=== PATIENT | female | born 1980 | race Caucasian/White ===

== ENCOUNTER 2016-08-11 12:34 | Emergency (ER) | payer MEDICAID, OTHER ==
[2016-08-11 12:47] VITALS: BP 134/86; RESP 22; TEMP 98.6; O2SAT 95
[2016-08-11 13:20] VITALS: PULSE 62
--- NOTE | 2016-08-11 13:32 | UCPHY ---
H & P Patient Type: New Chief Complaint Nursing Narrative: anxiety/depression for past few months. having a hard time functoning Time Seen by Provider: 08/11/16 13:06 HPI/ROS: CHIEF COMPLAINT: Anxiety, depression HISTORY OF PRESENT ILLNESS: The patient is a 36-year-old female who comes to the emergency department complaining of anxiety and depression. She states that it has been worsening over the last 4 or 5 months. She feels that she is not able to care for herself. She denies suicidality or homicidality. She denies any recent drug or alcohol abuse. She does not take any medications. She has been referred to [facility] but cannot get an appointment for several weeks. She denies having any medical complaints. REVIEW OF SYSTEMS: Constitutional: denies: chills, fever, recent illness, recent injury EENTM: denies: blurred vision, double vision, nose congestion Respiratory: denies: cough, shortness of breath Cardiac: denies: chest pain, irregular heart rate, lightheadedness, palpitations Gastrointestinal/Abdominal: denies: abdominal pain, diarrhea, nausea, vomiting, blood streaked stools Genitourinary: denies: dysuria, frequency, hematuria, pain Musculoskeletal: denies: joint pain, muscle pain Skin: denies: lesions, rash, jaundice, bruising Neurological: denies: headache, numbness, paresthesia, tingling, dizziness, weakness Hematologic/Lymphatic: denies: blood clots, easy bleeding, easy bruising Immunologic/allergic: denies: HIV/AIDS, transplant EXAM: GENERAL: Well-appearing, well-nourished and in no acute distress. HEAD: Atraumatic, normocephalic. EYES: Pupils equal round and reactive to light, extraocular movements intact, sclera anicteric, conjunctiva are normal. ENT: TMs normal, nares patent, oropharynx clear without exudates. Moist mucous membranes. NECK: Normal range of motion, supple without lymphadenopathy or JVD. LUNGS: Breath sounds clear to auscultation bilaterally and equal. No wheezes rales or rhonchi. HEART: Regular rate and rhythm without murmurs, rubs or gallops. ABDOMEN: Soft, nontender, normoactive bowel sounds. No guarding, no rebound. No masses appreciated. BACK: No CVA tenderness, no spinal tenderness, step-offs or deformities EXTREMITIES: Normal range of motion, no pitting or edema. No clubbing or cyanosis. NEUROLOGICAL: Cranial nerves II through XII grossly intact. Normal speech, normal gait. 5/5 strength, normal movement in all extremities, normal sensation PSYCH: Depression, anxiety SKIN: Warm, dry, normal turgor, no visible rashes or lesions. Source: Patient Exam Limitations: No limitations - Personal History LMP (Females 10-55): IUD In Place Current Tetanus/Diphtheria Vaccine: Unsure Current Tetanus Diphtheria and Acellular Pertussis (TDAP): Unsure - Medical/Surgical History Hx Asthma: No Hx Chronic Respiratory Disease: No Hx Diabetes: No Hx Cardiac Disease: No Hx Renal Disease: No Hx Cirrhosis: No Hx Alcoholism: No Hx HIV/AIDS: No Hx Splenectomy or Spleen Trauma: No Other PMH: anxiety, depression, PTSD, hypothyroid - Family History Significant Family History: No pertinent family hx - Social History Smoking Status: Never smoked Alcohol Use: Sober Drug Use: None Constitutional: Initial Vital Signs Temperature (C) 37 C 08/11/16 12:45 Heart Rate 76 08/11/16 12:45 Respiratory Rate 22 H 08/11/16 12:45 Blood Pressure 134/86 H 08/11/16 12:45 O2 Sat (%) 95 08/11/16 12:45 O2 Delivery Mode Room Air Allergies/Adverse Reactions: No Known Allergies Allergy (Unverified 08/11/16 12:45) Home Medications: Medication Instructions Recorded Hydroxyzine HCl 08/11/16 LEVOTHYROXINE SODIUM 08/11/16 Medical Decision Making ED Course/Re-evaluation: spoke with our outsole caser as well as the patient. I will refer her to [facility]. On [address]. She will take herself there now. She is happy with this plan. Differential Diagnosis: Partial list of the Differential diagnosis considered include but were not limited to; depression, anxiety and although unlikely based on the history and physical exam, I also considered bipolar, schizophrenia, substance abuse, infection. Departure - Departure Disposition: Home, Routine, Self-Care Clinical Impression: Depression Qualifiers: Depression Type: unspecified Qualified Code(s): F32.9 - Major depressive disorder, single episode, unspecified Condition: Fair Instructions: Depression (ED) Referrals: JOELLEN STILL,. [Primary Care Provider] - As per Instructions [facility] [Outside] - 1 day without fail ([facility] [address] [phone]) - PQRS PQRS Measurement: Not applicable
== END 2016-08-11 14:00 | disposition home or self-care (01) ==
LOC: CED 12:34
DX: F32.9 Major depressive disorder, single episode, unspecified (principal); F41.9 Anxiety disorder, unspecified; F43.10 Post-traumatic stress disorder, unspecified; E03.9 Hypothyroidism, unspecified
CPT/HCPCS: 99204-PO; G0463-PO

== ENCOUNTER 2017-09-11 12:04 | Emergency (ER) | payer MEDICAID ==
[2017-09-11] MEDS ORDERED: ONDANSETRON DISINTEGRATING 4 MG TAB PO ONE (12:24)
[2017-09-11] MEDS ORDERED: NS 1,000 ML IV ONE (12:56)
--- NOTE | 2017-09-11 13:07 | EDPHY ---
H & P Stated Complaint: 3 days vomiting and anxiety;increasing over past month; therapist yest Time Seen by Provider: 09/11/17 12:08 HPI/ROS: Chief Complaint: Nausea, vomiting, diarrhea, anxiety HPI: 37-year-old woman presenting with 3 days of nausea vomiting and diarrhea. Patient states she has been able to keep anything down. She is also having some anxiety symptoms associated with this. Patient states she has been having some alternating nausea for the last month or so. No recent antibiotic use. No fevers or chills. No blood or coffee-grounds in her vomit. No blood or dark black tarry bowel movements. Some mild crampy abdominal pain. Also having some musculoskeletal upper back pain. She was seen by her counselor yesterday who in instructed her to come the emergency depart for systems persisted. Patient states she has been trying to drink water but not able to keep anything down. ROS: 10 point Review of Systems is negative except as noted in the HPI. PMH: Anxiety and depression Social History: Denies smoking Family History: non-contributory Physical Exam: Gen: Awake, Alert, No Distress HEENT: Nose: no rhinorrhea Eyes: PERRLA, EOMI Mouth: Moist mucosa Neck: Supple, no JVD Chest: nontender, lungs clear to auscultation Heart: S1, S2 normal, no murmur Abd: Soft, non-tender, no guarding Back: no CVA tenderness, no midline tenderness Ext: no edema, non-tender Skin: no rash Neuro: CN II-XII intact, Sensation grossly intact, Strength 5/5 in bilateral upper and lower extremities - Personal History LMP (Females 10-55): IUD In Place Current Tetanus/Diphtheria Vaccine: Yes - Medical/Surgical History Hx Asthma: No Hx Chronic Respiratory Disease: No Hx Diabetes: No Hx Cardiac Disease: No Hx Renal Disease: No Hx Cirrhosis: No Hx Alcoholism: No Hx HIV/AIDS: No Hx Splenectomy or Spleen Trauma: No Other PMH: anxiety, depression, PTSD, hypothyroid, hand surgery - Social History Smoking Status: Never smoked Constitutional: Initial Vital Signs Heart Rate 96 09/11/17 12:09 Respiratory Rate 24 H 09/11/17 12:09 Blood Pressure 120/75 09/11/17 12:09 O2 Sat (%) 96 09/11/17 12:09 Allergies/Adverse Reactions: No Known Allergies Allergy (Verified 09/11/17 12:13) Home Medications: Medication Instructions Recorded LEVOTHYROXINE SODIUM 08/11/16 Ondansetron Odt [Zofran Odt 4 mg 4 mg PO Q4 PRN #10 tab 09/11/17 (*)] traZODone 09/11/17 Medical Decision Making ED Course/Re-evaluation: Patient presenting with nausea vomiting per report. Patient is afebrile. She is not tachycardic. Blood pressure is fine. She has mild hyperventilation further triage but is breathing normally my evaluation. We have her oral ondansetron oral fluids and reassess. Her abdomen is soft and benign. Patient states she still vomiting however not seen any vomiting in the emergency department. Patient states she is going to the bathroom to vomit. IV is been placed. Will give IV Reglan and some Toradol and fluids. - Data Points Medications Given: Discontinued Medications Sodium Chloride (Ns) 1,000 mls @ 0 mls/hr IV EDNOW ONE; Wide Open PRN Reason: Protocol Stop: 09/11/17 12:57 Last Admin: 09/11/17 13:05 Dose: 1,000 mls Ketorolac Tromethamine (Toradol) 15 mg IVP EDNOW ONE Stop: 09/11/17 13:09 Last Admin: 09/11/17 13:15 Dose: 15 mg Metoclopramide HCl (Reglan Injection) 10 mg IVP EDNOW ONE Stop: 09/11/17 13:09 Last Admin: 09/11/17 13:13 Dose: 10 mg Ondansetron HCl (Zofran Odt) 4 mg PO EDNOW ONE Stop: 09/11/17 12:25 Last Admin: 09/11/17 12:27 Dose: 4 mg Departure - Departure Disposition: Home, Routine, Self-Care Clinical Impression: Acute gastroenteritis Condition: Good Instructions: Gastroenteritis (ED) Additional Instructions: You may take Zofran as needed for nausea vomiting. Make sure to drink plenty of fluids, Pedialyte is the best to drink for rehydration. Follow up with primary care physician in 3-4 days for further evaluation. Referrals: Elissa Blakely, DO [Primary Care Provider] - As per Instructions Stand Alone Forms: Work Excuse Prescriptions: Ondansetron Odt [Zofran Odt 4 mg (*)] 4 mg PO Q4 PRN #10 tab PRN Reason: nausea
[2017-09-11] MEDS ORDERED: KETOROLAC 15 MG/1 ML SDV IVP ONE (13:08)
[2017-09-11] MEDS ORDERED: METOCLOPRAMIDE 10 MG/2 ML VIAL IVP ONE (13:08)
[2017-09-11 14:10] VITALS: BP 103/61
== END 2017-09-11 14:02 | disposition home or self-care (01) ==
LOC: CED 12:04
DX: K52.9 Noninfective gastroenteritis and colitis, unspecified (principal); E86.9 Volume depletion, unspecified
CPT/HCPCS: 96374; J1885; J2765